=== PATIENT | female | born 1955 | race Caucasian/White ===

== ENCOUNTER → 2017-01-03 | Day surgery (SDC) | payer BC ==
[~2017-01-03] VITALS: Ht 167.6 cm; Wt 69.0 kg
[~2017-01-03] MED LIST: BIOTIN5000 MCG PO; CITRACAL+D(315M1 TAB PO; FISH OIL 1,2001 EACH PO; LIPITOR10 MG PO; MAGNESIUM500 MG PO; TAB-A-VITE1 EACH PO
--- NOTE | ~2017-01-03 | HP ---
PATIENT'S NAME: YOON DRISCOLL [facility] AGE: 61 Y [address] ROOM: [place] [id number] LOCATION: GEND ADMIT DATE: 01/03/2017 History & Physical DISCHARGE DATE: FAMILY PHYSICIAN: Britany Denis MD ATTENDING PHYSICIAN: Britany Denis DATE OF SERVICE: 01/03/2017 DATE OF SURGERY: January 03, 2017. HISTORY OF PRESENT ILLNESS: Yoon Driscoll is a 61-year-old female referred for screening colonoscopy in view of family history of colon cancer. The patient otherwise denies any GI complaints and has had a previous colonoscopy, I believe 5 years ago. PAST MEDICAL HISTORY: 1. Hyperlipidemia. 2. Alopecia. MEDICATIONS: As noted in her MAR. PHYSICAL EXAMINATION: GENERAL: Well-developed, well-nourished female in no distress. VITAL SIGNS: Vital signs recorded are stable. HEENT: Head, normocephalic, atraumatic. Eyes, pupils round and reactive. Ears, normal tympanic membrane. Oropharynx, normal moist mucosa. NECK: Supple. No thyromegaly or lymph nodes palpable. CHEST: Clear to auscultation. HEART: S1, S2 normal. ABDOMEN: Soft and benign without palpable masses or tenderness. NEUROLOGIC: Awake, alert, and appropriate without any focal deficits. IMPRESSION: A 61-year-old female for screening colonoscopy. I have explained to her the procedure, including the possible risks and complications there off. ZOEY DANIELLE MD AM/gissel PATIENT'S NAME: YOON DRISCOLL [facility] AGE: 61 Y [address] ROOM: [place] [id number] LOCATION: GEND ADMIT DATE: 01/03/2017 History & Physical DISCHARGE DATE: FAMILY PHYSICIAN: Britany Denis MD ATTENDING PHYSICIAN: Britany Denis /[id number] D: [id number] T: [id number] HISTORY & PHYSICAL
== END | disposition disaster alternative care site (69) ==
LOC: GPOC 01-01 15:00 → GEND 08:31
PROC: 0DJD8ZZ Inspection of Lower Intestinal Tract, Via Natural or Artificial Opening Endoscopic (ICD-10-PCS; principal; 2017-01-03)
DX: Z12.11 Encounter for screening for malignant neoplasm of colon (principal); E78.00 Pure hypercholesterolemia, unspecified; E78.5 Hyperlipidemia, unspecified; Z98.890 Other specified postprocedural states; Z79.899 Other long term (current) drug therapy
CPT/HCPCS: J2001; J7030

== ENCOUNTER → 2017-01-18 | Outpatient (CLI) | payer BC | LOC: GBCOE 07:23 | DX: Z12.31 Encounter for screening mammogram for malignant neoplasm of breast (principal) | CPT/HCPCS: G0202 ==